=== PATIENT | female | born 1975 | race Caucasian/White ===

== ENCOUNTER 2022-08-29 10:04 | Day surgery (SDC) | payer BC ==
[2022-08-29] MEDS ORDERED: Acetaminophen 500 MG TAB PO SCH (10:45)
[2022-08-29] MEDS ORDERED: diphenhydrAMINE 25 MG CAP PO SCH (10:45)
[2022-08-29] MEDS ORDERED: diphenhydrAMINE 25 MG CAP ONE (11:33)
[2022-08-29 12:34] VITALS: BP 110/76; TEMP 97.8
== END 2022-08-29 12:53 | disposition home or self-care (01) ==
LOC: ONC/OP 10:04
PROVIDERS: ATTEND Internal Medicine Hematology & Oncology
PROC: 30233R1 Transfusion of Nonautologous Platelets into Peripheral Vein, Percutaneous Approach (ICD-10-PCS; principal; 2022-08-29)
DX: D69.6 Thrombocytopenia, unspecified (principal); D64.9 Anemia, unspecified
CPT/HCPCS: 36415; 36430; 80053; 82248; 83615; 84100; 84550; 86850; 86900; 86901; P9035

== ENCOUNTER 2022-10-06 09:13 | Day surgery (SDC) | payer BC ==
[~2022-10-06 09:13] MED LIST: Acetaminophen 500 MG TAB PO SCH; diphenhydrAMINE 25 MG CAP PO SCH
[2022-10-06] MEDS ORDERED: Acetaminophen 500 MG TAB ONE (10:18)
[2022-10-06] MEDS ORDERED: diphenhydrAMINE 25 MG CAP ONE (10:18)
[2022-10-06 15:08] VITALS: BP 107/63; TEMP 98.2
== END 2022-10-06 13:20 | disposition home or self-care (01) ==
LOC: ONC/OP 09:13
PROVIDERS: ATTEND Internal Medicine Hematology & Oncology
PROC: 30233N1 Transfusion of Nonautologous Red Blood Cells into Peripheral Vein, Percutaneous Approach (ICD-10-PCS; principal; 2022-10-06)
DX: D64.9 Anemia, unspecified (principal); D69.6 Thrombocytopenia, unspecified
CPT/HCPCS: 36430; 86850; 86900; 86901; J1642; P9016

== ENCOUNTER 2023-07-25 08:53 | Day surgery (SDC) | payer BC ==
[2023-07-25] MEDS ORDERED: Acetaminophen 500 MG TAB ONE (09:38)
[2023-07-25 11:08] VITALS: BP 112/70
[2023-07-25 13:41] VITALS: TEMP 98.2
== END 2023-07-25 14:01 | disposition home or self-care (01) ==
LOC: ONC/OP 08:53
PROVIDERS: ATTEND Internal Medicine Hematology & Oncology
DX: D64.9 Anemia, unspecified (principal); D69.59 Other secondary thrombocytopenia
CPT/HCPCS: 36430; 86850; 86900; 86901; P9016

== ENCOUNTER 2025-04-21 13:32 | Outpatient (CLI) | payer BC | END 2025-04-21 13:33 | disposition home or self-care (01) | LOC: BICCT 13:32 | PROVIDERS: ATTEND Internal Medicine Critical Care Medicine | DX: C49.9 Malignant neoplasm of connective and soft tissue, unspecified (principal); J45.909 Unspecified asthma, uncomplicated; R91.8 Other nonspecific abnormal finding of lung field | CPT/HCPCS: 71250 ==

== ENCOUNTER 2025-08-03 10:58 | Day surgery (SDC) | payer BC ==
[2025-08-03] MEDS ORDERED: diphenhydrAMINE 25 MG CAP ONE (11:57)
[2025-08-03] MEDS ORDERED: Acetaminophen 500 MG TAB ONE (11:57)
[2025-08-03] MEDS: Acetaminophen 500 MG TAB PO SCH (11:59)
[2025-08-03] MEDS: diphenhydrAMINE 25 MG CAP PO SCH (11:59)
[2025-08-03 12:44] VITALS: TEMP 98.3
[2025-08-03 15:26] VITALS: BP 114/66
== END 2025-08-03 15:27 | disposition home or self-care (01) ==
LOC: ONC/OP 10:58
PROVIDERS: ATTEND Internal Medicine Hematology & Oncology
DX: D64.9 Anemia, unspecified (principal); D69.6 Thrombocytopenia, unspecified
CPT/HCPCS: 36430; 86850; 86900; 86901; J1642; P9016